=== PATIENT | male | born 1970 | race Caucasian/White ===

== ENCOUNTER 2018-12-21 17:28 | Inpatient (IN) | payer OTHER ==
[~2018-12-21] VITALS: Ht 177.8 cm; Wt 72.6 kg
--- NOTE | ~2018-12-21 | EKG ---
[place] [address] ELECTROCARDIOGRAM REPORT Name: RASHMI BAKER Room: [address] ADM IN M.R.#: [id number] Admission: 12/21/18 Attend Phys: Sraah Vivar Discharge: Date of : 70 Report #: [id number] THIS REPORT FOR: //name// [facility] ED Test Date: 2018-12-21 Test Time: 17:33:48 Pat Name: RASHMI BAKER Department: Room: [address] Gender: M Bandsaw Operator: MAHESH : 1970 Requested By: Jorden Gordon Order Number: [id number] Reading MD: Measurements Intervals [place] Rate: 70 P: 0 TX: 130 QRS: 35 QRSD: 98 T: 50 QT: 437 QTc: 472 Interpretive Statements Sinus rhythm Probable left ventricular hypertrophy Baseline wander in lead(s) I,III,aVL,aVF No previous ECG available for comparison [email or web address] By: 1733 1733 Epiphany EpiphanyMD /EPI
[~2018-12-21 17:28] MED LIST: ENDOCET 10-3251 EACH; ENDOCET 10-3251 EACH PO; PERCOCET 5-3251 EACH PO
[2018-12-21 17:31] VITALS: BP 194/98
[2018-12-21 17:50] LABS: ABSOLUTE EOSINOPHILS 0.2 thou/uL (0.0-0.7); ABSOLUTE LYMPHOCYTES 1.4 thou/uL (0.8-5.3); ABSOLUTE MONOCYTES 0.4 thou/uL (0.0-1.2); ABSOLUTE NEUTROPHILS 7.5 thou/uL (1.6-8.1); BASOPHILS 0.5 %; EOSINOPHILS 2.5 %; HEMATOCRIT 42.2 % (42.0-52.0); HEMOGLOBIN 14.7 gm/dL (14.0-18.0); LYMPHOCYTES 14.9 %; MCH 29.8 pg (26.0-34.0); MCHC 34.8 g/dL (28.0-37.0); MCV 85.7 fL (80.0-100.0); MONOCYTES 4.5 %; MPV 7.5 fl. (7.2-11.1); NUCLEATED RBCS 0 /100WBC; PLATELET COUNT* 190 thou/uL (150-400); POLYS 77.6 %; RBC 4.93 mil/uL (4.50-6.00); RDW-CV 12.9 % (10.5-14.5); WBC 9.7 thou/uL (4.0-11.0)
[2018-12-21 18:00] LABS: APTT 27.3 Seconds (25.0-31.3); PROTIME 10.1 Seconds (9.20-11.50)
[2018-12-21 18:05] LABS: CALCIUM 9.1 mg/dL (8.5-10.1); CREATININE 0.9 mg/dL (0.6-1.3); POTASSIUM 4.1 mmol/L (3.5-5.1)
[2018-12-21 18:12] LABS: ALBUMIN 3.6 g/dL (3.4-5.0); CK-MB MASS 0.9 ng/mL (<0.5-3.6); MAGNESIUM 1.9 mg/dL (1.8-2.4); TOTAL BILIRUBIN 0.2 mg/dL (<0.1-1.0); TOTAL PROTEIN 7.4 g/dL (6.4-8.2)
[2018-12-21 21:15] VITALS: BP 168/116
[2018-12-21 22:00] VITALS: BP 169/89
[2018-12-22 00:01] VITALS: BP 154/81
[2018-12-22 04:00] VITALS: BP 102/78
[2018-12-22 08:00] VITALS: BP 140/75
--- NOTE | 2018-12-22 09:51 | EKG ---
[place] [address] ELECTROCARDIOGRAM REPORT Name: RASHMI BAKER Room: [address] ADM IN [facility].#: [id number] Admission: 12/21/18 Attend Phys: Sarah Vivar Discharge: Date of : 70 Report #: [id number] THIS REPORT FOR: //name// [facility] ED Test Date: 2018-12-21 Test Time: 20:51:31 Pat Name: RASHMI BAKER Department: Room: [facility] Gender: M Fraud Manager: [place] : 1970 Requested By: Jorden Gordon Order Number: [id number] MD: Rigo Mack Measurements Intervals [place] Rate: 80 P: 14 ND: 130 QRS: 58 QRSD: 99 T: 51 QT: 446 QTc: 515 Interpretive Statements Sinus rhythm Prolonged QT interval No previous ECG available for comparison Electronically Signed On 12-22-2018 9:51:20 DIRECTOR SEARCH by Rigo Mack [email or web address] <ELECTRONICALLY SIGNED> By: Rigo Mack MD, [facility] 12/22/18 0951 50 50 Rigo Mack MD, FACC /EPI
[2018-12-22 11:54] VITALS: BP 127/81
[2018-12-22 16:01] VITALS: BP 129/79
--- NOTE | 2018-12-22 16:38 | CON ---
[facility] [address] [place] [address] CONSULTATION Name: RASHMI BAKER Room: [address] IN [facility]#: [id number] Admission: 12/21/18 Attend Phys: Sarah Vivar Discharge: Date of : 70 Report #: [id number] THIS REPORT FOR: //name// CC: Rigo Casillas DATE OF SERVICE: 12/22/2018 CARDIOLOGY CONSULTATION HISTORY OF PRESENT ILLNESS: The patient is a 48-year-old white male who I was asked to see in the hospital after he complained of chest pain. The patient has an extensive and complicated past medical history. Unfortunately, we have none of the old records. The patient apparently had no previous history of heart disease until about 6 weeks ago. 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 Bystander CPR was started. Paramedics arrived. He was taken to [facility]. He eventually had an ICD placed. He was then discharged a week ago. Since his discharge, he has been having chest pain. He went to the Emergency Room at [facility] and was sent home. Yesterday, he felt a discomfort in his chest, went into his shoulder. Denied any diaphoresis, nausea or shortness of breath. He came to the hospital and was admitted. He denies exertional dyspnea, palpitations or syncope. PAST MEDICAL HISTORY: He had accident at work in the past and required surgery on his right knee and left hand. He has no history of hypertension or diabetes. CURRENT MEDICATIONS: He does not know, although he apparently was sent home on Coreg, lisinopril, and aspirin. ALLERGIES: HE HAS AN ALLERGY TO FLEXERIL. FAMILY HISTORY: His father had heart disease. SOCIAL HISTORY: He is . He and his live in [place]. He does construction, quit smoking in the past. Rarely drinks alcohol. REVIEW OF SYSTEMS: He has had no history of stroke, asthma, peptic ulcer disease, liver disease, kidney disease, cancer, psychiatric illness or chronic skin condition. PHYSICAL EXAMINATION: GENERAL: Revealed an elderly male, lying in bed. He appeared in no distress. VITAL SIGNS: He had a blood pressure of 140/70, pulse 70, he is afebrile. HEENT: He was anicteric. Conjunctivae pink. Mucous membranes moist. NECK: Veins nondistended. No carotid bruits. [place] [address] CONSULTATION Name: RASHMI BAKER Room: [address]#: [id number] Admission: 12/21/18 Attend Phys: Sarah Vivar Discharge: Date of : 70 Report #: [id number] CHEST: Clear to auscultation. CARDIOVASCULAR: Regular rate without murmur. ABDOMEN: Soft. EXTREMITIES: Had no edema. Dorsalis pedis pulse 2+ bilaterally. SKIN: Warm and dry. NEUROLOGIC: Nonfocal. LYMPH: No adenopathy. MUSCULOSKELETAL: No joint effusion. RADIOLOGICAL DATA: His ECG on admission showed a sinus rhythm. There is no significant ST or T-wave change. His chest x-ray in the Emergency Room yesterday, normal heart size, defibrillator in place. LABORATORY DATA: Sodium 142, creatinine 0.9. Troponins all 0.06. White blood cell count 9.7, hemoglobin 14.7. IMPRESSION AND RECOMMENDATIONS: 1. Chest pain. Suspect noncardiac. Suspect musculoskeletal. I would not recommend cardiac evaluation at this time. I will await the results of the hospitalization from [facility] [place] [facility]. 2. Recent placement of implantable cardioverter-defibrillator. 3. Recent cardiac arrest. The patient has an implantable cardioverter-defibrillator in place. 4. Previous tobacco abuse. 5. 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 <ELECTRONICALLY SIGNED> By: Rigo Mack MD, FACC 12/22/18 1638 1033 1112Davisarah Mack MD, FACC /nt
--- NOTE | 2018-12-22 16:47 | EKG ---
[place] [address] ELECTROCARDIOGRAM REPORT Name: RASHMI BAKER Room: [address] ADM IN .R.#: [id number] Admission: 12/21/18 Attend Phys: Sarah Vivar Discharge: Date of : 70 Report #: [id number] THIS REPORT FOR: //name// [facility] ED Test Date: 2018-12-21 Test Time: 17:33:48 Pat Name: RASHMI BAKER Department: Room: [address] Gender: M Table Keeper: TDOWNS : 1970 Requested By: Jorden Gordon Order Number: [id number] MD: Rigo Mack Measurements Intervals [place] Rate: 70 P: 0 [place]: 130 QRS: 35 QRSD: 98 T: 50 QT: 437 QTc: 472 Interpretive Statements Sinus rhythm Probable left ventricular hypertrophy Baseline wander in lead(s) I,III,aVL,aVF No previous ECG available for comparison Electronically Signed On 12-22-2018 16:47:05 ELECTRIC TRUCK OPERATOR by Rigo Mack [email or web address] <ELECTRONICALLY SIGNED> By: Rigo Mack MD, [facility] 12/22/18 5258 1733 1733 Rigo Mack MD, [facility] /EPI
[2018-12-22 20:00] VITALS: BP 132/84
[2018-12-23] VITALS: BP 105/52
[2018-12-23 04:00] VITALS: BP 113/62
[2018-12-23 12:00] VITALS: BP 149/95
[2018-12-23] MEDS ORDERED: NITROSTAT0.4 M1 PO (12:25)
[2018-12-23] MEDS ORDERED: PERCOCET PO (12:29)
[2018-12-23] MEDS ORDERED: IMDUR 60 MG TAB60 M1 PO (12:29)
[2018-12-23] MEDS ORDERED: NORVASC 2.5 MG2.5 M1 PO (12:29)
[2018-12-23 13:49] LABS: ABSOLUTE EOSINOPHILS 0.3 thou/uL (0.0-0.7); ABSOLUTE LYMPHOCYTES 1.6 thou/uL (0.8-5.3); ABSOLUTE MONOCYTES 0.4 thou/uL (0.0-1.2); ABSOLUTE NEUTROPHILS 6.6 thou/uL (1.6-8.1); BASOPHILS 0.5 %; EOSINOPHILS 3.5 %; HEMATOCRIT 41.8 % (42.0-52.0); HEMOGLOBIN 14.3 gm/dL (14.0-18.0); LYMPHOCYTES 17.8 %; MCH 29.5 pg (26.0-34.0); MCHC 34.1 g/dL (28.0-37.0); MCV 86.4 fL (80.0-100.0); MPV 7.8 fl. (7.2-11.1); NUCLEATED RBCS 0 /100WBC; PLATELET COUNT* 202 thou/uL (150-400); POLYS 73.2 %; RBC 4.83 mil/uL (4.50-6.00); RDW-CV 13.1 % (10.5-14.5); WBC 9.1 thou/uL (4.0-11.0)
[2018-12-23 13:53] VITALS: BP 149/95
[2018-12-23 14:10] LABS: ALBUMIN 3.6 g/dL (3.4-5.0); CALCIUM 9.3 mg/dL (8.5-10.1); TOTAL BILIRUBIN 0.2 mg/dL (<0.1-1.0); TOTAL PROTEIN 7.5 g/dL (6.4-8.2)
[2018-12-23 14:11] VITALS: BP 149/95
[2018-12-23 15:17] LABS: ESR (SEDRATE) 15 mm/hr (0-15)
== END 2018-12-23 14:20 | disposition home or self-care (01) | DRG 313 ==
LOC: M.ERS 17:28 → M.2W 18:31 → M.TBA-ER 18:31 → M.2W 21:20
PROVIDERS: Family Medicine; Internal Medicine; ADMIT Internal Medicine
DX: R07.89 Other chest pain (principal); I42.9 Cardiomyopathy, unspecified; G89.29 Other chronic pain; M54.9 Dorsalgia, unspecified; I25.10 Atherosclerotic heart disease of native coronary artery without angina pectoris; F17.210 Nicotine dependence, cigarettes, uncomplicated; Z89.112 Acquired absence of left hand; Z88.8 Allergy status to other drugs, medicaments and biological substances; Z82.49 Family history of ischemic heart disease and other diseases of the circulatory system

== ENCOUNTER 2018-12-25 14:18 | Emergency (ER) | payer MEDICAID ==
[~2018-12-25] VITALS: Ht 177.8 cm; Wt 77.6 kg
[~2018-12-25 14:18] MED LIST changes: +IMDUR 60 MG TAB60 M1 PO; +NITROSTAT0.4 M1 PO; +NORVASC 2.5 MG2.5 M1 PO; +PERCOCET PO
[2018-12-25 14:51] LABS: ABSOLUTE BASOPHILS 0.1 thou/uL (0.0-0.2); ABSOLUTE EOSINOPHILS 0.2 thou/uL (0.0-0.7); ABSOLUTE LYMPHOCYTES 1.7 thou/uL (0.8-5.3); ABSOLUTE MONOCYTES 0.3 thou/uL (0.0-1.2); BASOPHILS 0.7 %; EOSINOPHILS 3.4 %; HEMATOCRIT 40.1 % (42.0-52.0); HEMOGLOBIN 13.8 gm/dL (14.0-18.0); LYMPHOCYTES 23.7 %; MCH 29.5 pg (26.0-34.0); MCHC 34.5 g/dL (28.0-37.0); MCV 85.6 fL (80.0-100.0); MONOCYTES 4.2 %; MPV 7.6 fl. (7.2-11.1); NUCLEATED RBCS 0 /100WBC; PLATELET COUNT* 182 thou/uL (150-400); RBC 4.69 mil/uL (4.50-6.00); RDW-CV 13.1 % (10.5-14.5); WBC 7.3 thou/uL (4.0-11.0)
[2018-12-25 14:57] LABS: PROTIME 10.1 Seconds (9.20-11.50)
[2018-12-25 14:58] LABS: POTASSIUM 4.1 mmol/L (3.5-5.1)
[2018-12-25 15:13] LABS: ALBUMIN 3.6 g/dL (3.4-5.0); CK-MB MASS 1.4 ng/mL (<0.5-3.6); MAGNESIUM 1.9 mg/dL (1.8-2.4); TOTAL BILIRUBIN 0.2 mg/dL (<0.1-1.0); TOTAL PROTEIN 7.3 g/dL (6.4-8.2)
[2018-12-25 15:23] VITALS: BP 177/88
--- NOTE | 2018-12-26 11:19 | EKG ---
[place] [address] ELECTROCARDIOGRAM REPORT Name: RASHMI BAKER [id number] Admission: 12/25/18 Attend Phys: Discharge: 12/25/18 Date of : 70 Report #: [id number] THIS REPORT FOR: //name// [facility] ED Test Date: 2018-12-25 Test Time: 14:23:19 Pat Name: RASHMI BAKER Department: Room: Gender: M Six Color Press Operator: : 1970 Requested By: Jorden Gordon Order Number: [id number] MD: Rigo Mack Measurements Intervals [place] Rate: 71 P: 19 [place]: 138 QRS: 39 QRSD: 99 T: 21 QT: 410 QTc: 446 Interpretive Statements Sinus rhythm Baseline wander in lead(s) V1 Compared to ECG 12/21/2018 20:51:31 Prolonged QT interval no longer present Electronically Signed On 12-26-2018 11:19:15 RISK ANALYST by Rigo Mack [email or web address] <ELECTRONICALLY SIGNED> By: Rigo Mack MD, [facility] 12/26/18 1119 1423 1423 Rigo Mack MD, FACC /EPI
== END 2018-12-25 15:24 | disposition home or self-care (01) ==
LOC: M.ERS 14:18
PROVIDERS: Family Medicine
DX: R07.89 Other chest pain (principal); Z88.8 Allergy status to other drugs, medicaments and biological substances